=== PATIENT | female | born 1995 | race Two or more races ===

== ENCOUNTER 2016-08-02 23:50 | Emergency (ER) | payer OTHER ==
--- NOTE | ~2016-08-02 | CR142 ---
[facility] A Service of [facility] & [facility] RADIOLOGY TEXT RESULTS PATIENT: MARK MARS LOCATION: SED : [birth year] UNIT #: [id number] AGE: [address]: Clint Cardoso MD SEX: F ORDER DR: [id number] [place] [id number] E MR#: [id number] #: [id number] NAME: MARK MARS : 1995 SEX: F STUDY DATE/TIME: 08/03/2016 0:37 UNIT: SED ROOM: STUDY DESCRIPTION: CR Hand Min 3 Views Rt Attending Physician: Clint Cardoso M.D. Ordering Physician: Clint Cardoso M.D. Primary Care Physician: Jl Peralta Sr., M.D. MEDICAL IMAGING REPORT This report is preliminary unless electronic signature is present. EXAM Right hand series, 08/03/2016 HISTORY 21-year-old female in the ED complaining of right hand pain and swelling beginning prior to arrival today. No reported acute injury. TECHNIQUE Three-view right hand series. FINDINGS The examination is negative. No fracture, arthropathy or other osseous abnormality. No visible soft tissue gas or radiopaque soft tissue foreign body. IMPRESSION Negative right hand series. Dictated by... Simone Smith M.D. THIS IS AN ELECTRONICALLY VERIFIED REPORT Simone Smith M.D. at 08/03/2016 6:01 AM CHRIS/moi TD: 08/03/2016 03:47 JOB #: [id number] MEDICAL IMAGING REPORT Page 1 of 1
[~2016-08-02 23:50] MED LIST: BACTRIM DS TABL1 TA1 PO; BENTYL20 M1 PO; CIPRO250 M1 PO; COLACE PO; LEVAQUIN PO; MACROBID100 M1 PO; METROGEL 1% KIT1 EA TP; MOTRIN400 M1 PO; NAPROXEN250 MG PO; NO MEDICATIONS; PREDNISONE1 MG PO; PRENATAL TABLET1 TA1 PO; TOBRAMYCIN-DEXAM5 ML OS
== END 2016-08-03 01:28 | disposition home or self-care (01) ==
LOC: SED 23:50
DX: S60.221A Contusion of right hand, initial encounter (principal); Z88.2 Allergy status to sulfonamides; X58.XXXA Exposure to other specified factors, initial encounter
CPT/HCPCS: 73130; 99283

== ENCOUNTER 2016-10-16 19:41 | Emergency (ER) | payer OTHER ==
[2016-10-16 20:12] LABS: URINE SOURCE CLEAN CATCH
[2016-10-16 20:15] LABS: URINE APPEARANCE HAZY; URINE BLOOD NEG (NEG); URINE COLOR YELLOW; URINE GLUCOSE NEG (NORM); URINE KETONE 1+ (NEG); URINE LEUKOCYTE ESTERASE NEG (NEG); URINE NITRATE NEG (NEG); URINE PROTEIN 1+ (NEG); URINE SPECIFIC GRAVITY >=1.030 (1.003-1.035); URINE UROBILINOGEN 0.2 MG/DL (NORM)
[2016-10-16 20:22] LABS: URINE BILIRUBIN NEG (NEG)
[2016-10-16 20:23] LABS: BASOPHIL% 0.2 % (0-2.5); EOSINOPHIL# 0.1 X10e3 (0-0.7); EOSINOPHIL% 0.6 % (0.0-7.0); HEMOGLOBIN 14.3 gm/dL (12.0-16.0); LYMPHOCYTE# 0.5 X10e3 (1.0-3.5); LYMPHOCYTE% 5.2 % (17.0-45.0); MEAN CELL VOLUME 87.6 FL (83-96); MEAN CORPUSCULAR HEMOGLOBIN 29.2 PG (28-34); MEAN CORPUSCULAR HGB CONC 33.3 g/dL (30-36); MEAN PLATELET VOLUME 9.2 FL (6.5-11.5); MONOCYTE# 0.3 X10e3 (0-1.0); MONOCYTE% 3.7 % (3.0-12.0); NEUTROPHIL# 8.4 X10e3 (1.5-7.1); NEUTROPHIL% 90.3 % (40-75); PLATELET COUNT 214 X10e3 (140-420); RED BLOOD COUNT 4.91 X10e (3.90-5.30); RED CELL DISTRIBUTION WIDTH 13.1 % (11.0-15.5); WHITE BLOOD COUNT 9.3 X10e3 (4.0-10.5)
[2016-10-16 20:23] LABS: CULTURE INDICATED? YES; MICRO INDICATED? YES; URINE BACTERIA 1+ (NEG); URINE MUCUS PRESENT; URINE SQUAMOUS EPITHELIAL CELL MODERATE /[HPF]
[2016-10-16 20:26] LABS: DIFF IND NO
[2016-10-16 20:42] LABS: ALBUMIN SERUM 4.7 g/dL (3.5-5.0); BILIRUBIN, DIRECT 0.2 mg/dL (0.0-0.2); BILIRUBIN,INDIRECT 1.9 mg/dL (0.0-0.9); BILIRUBIN,TOTAL 2.1 mg/dL (0.2-2.0); CALCIUM SERUM 9.1 mg/dL (8.4-10.2); CREATININE SERUM 0.8 mg/dL (0.6-1.4); GLOM FILT RATE Estimated 104.7 mL/min (>60); POTASSIUM 3.8 mmol/L (3.5-5.1); PROTEIN TOTAL SERUM 8.2 g/dL (6.0-8.3)
== END 2016-10-16 21:39 | disposition home or self-care (01) ==
LOC: SED 19:41
PROVIDERS: Nurse Practitioner Family
DX: R19.7 Diarrhea, unspecified (principal); R11.2 Nausea with vomiting, unspecified; Z88.2 Allergy status to sulfonamides; Z88.8 Allergy status to other drugs, medicaments and biological substances
CPT/HCPCS: 36415; 80048; 80076; 81003; 83690; 84703; 85025; 87086; 96361; 96374; 99284; J2405